=== PATIENT | female | born 1955 | race Caucasian/White ===

== ENCOUNTER 2024-08-05 19:15 | Inpatient (IN) | payer MEDICARE, SELFPAY ==
[2024-08-05] VITALS (88 sets, daily range): BP systolic 90–162; BP diastolic 41–126; PULSE 84–123; RESP 9–24; TEMP 36.1–36.8; O2SAT 97–100
--- NOTE | 2024-08-05 19:31 | W.ED.GENAD ---
Discharge Plan Disposition Patient Disposition: Admit to [facility] Condition: Serious Discharge Details Chief Complaint: [id number] Clinical Impression: Acute GI bleeding Primary Care Provider: Erika,Local ED Provider: Geronimo Short Home Meds and New Rx's Prescriptions: No Action No Known Home Meds HPI General Date/Time Provider Initiated Documentation: 08/05/24 19:21. Limitations to Documentation: no limitations and altered mental status. Information obtained by: patient, family and EMS. HPI Narrative: 69-year-old female without significant past medical history presents for evaluation of GI bleeding. Patient was found by EMS to the hypotensive and unresponsive on the floor of her hotel bathroom. They note that there was melena present in addition to a significant amount of bright red bleeding that appears to have come from the patient vomiting. They were unable to palpate a radial pulse. They report that the patient was initially minimally responsive. They placed 2 large-bore IVs and began some IV fluid resuscitation. Patient approximately at 300 cc of fluid and with some Trendelenburg positioning her mental status improved and they were able to get a blood pressure. The patient denies any liver disease or alcohol abuse. She does report a history of an ulcer 2 years ago that required intervention and had a similar amount of bleeding, maybe more. She was not started on a PPI tho. She is visiting from out of town and felt fine up until today. She reports all day she felt nauseated. This evening she started having dark brown tarry stool. She states then shortly after that she started having bright red vomiting she does not take any aspirin, other blood thinner, denies any use of NSAIDs. Reports occasional alcohol use. She reports that she has required blood transfusion in the past. Related Data Home Medications ?Medication ?Instructions ?Recorded ?Confirmed Unknown [No Known Home Meds] 08/05/24 08/05/24 Allergies Allergy/AdvReac Type Severity Reaction Status Date / Time Sulfa (Sulfonamide Allergy Other (See Verified 08/05/24 19:38 Antibiotics) Comment) General Stated Complaint: [id number] PAM: 2 Exam Narrative Exam Narrative: Review of Systems: All systems reviewed & are unremarkable except as noted in HPI and below Well-developed, ill-appearing Face and hair covered in blood NCAT Tachycardic no murmur Unlabored respiratory effort, clear bilaterally Nondistended abdomen soft nontender Course Vital Signs Vital signs: Vital Signs Temperature 36.1 C L 08/05/24 19:15 Pulse 94 H 08/05/24 19:15 Respiratory Rate 16 08/05/24 19:15 Blood Pressure 162/126 H 08/05/24 19:15 Pulse Oximetry 100 08/05/24 19:15 Temperature 36.1 C L 08/05/24 19:15 Temperature Source Oral 08/05/24 19:15 Pulse 94 H 08/05/24 19:15 Respiratory Rate 16 08/05/24 19:15 Respiratory Effort Normal 08/05/24 19:27 Respiratory Depth Normal 08/05/24 19:27 Respiratory Pattern Normal 08/05/24 19:27 Blood Pressure 162/126 H 08/05/24 19:15 Pulse Oximetry 100 08/05/24 19:15 Oxygen Delivery Method Room Air 08/05/24 19:15 Oxygen Flow Rate 0 08/05/24 19:15 Pain Level 0 08/05/24 19:15 Medical Decision Making Emergent evaluation of GI bleeding. Patient is ill-appearing though her hemodynamics have improved with positioning and IV fluid administration. There is a significant amount of blood loss at the scene and noted to have significant amount of blood on the patient. She smells of a GI bleed. She is not having any abdominal tenderness and reports that her nausea has resolved. She was emergently consented for blood product resuscitation given that she has demonstrated significant blood loss and there is an IV fluid shortage. Patient will be given IV Protonix. Since she does not have a history of liver disease or variceal bleeding, I will hold octreotide at this time. Lab work will be obtained to evaluate ongoing bleeding. Will give Zofran as well. If bleeding returns, patient may need to be intubated given the severity of her initial presentation. Will reach out to surgery to discuss whether this patient is a candidate for endoscopy here versus and need for transfer. 2000 Patient remains tachycardic but has had improvement in her blood pressure. She is continuing to receive 1 unit of PRBC. She reports that she denies any additional abdominal pain or nausea. Blood work reviewed, her hemoglobin is 9.3 and 29.6. No priors for comparison though this does seem low for an otherwise healthy person. Her chloride and BUN are elevated concerning for ongoing GI bleeding. Otherwise no liver dysfunction lipase is also normal. Discussed with general surgeon Dr. Rivas who evaluated the patient in the emergency department. She is requesting IV TXA which will be initiated here. She will admit the patient to her service and monitor in the ICU. Quality:SDOH Health Related Social Needs: No Data to Display Critical Care Time Critical Care Time Critical Care Time: Yes Total Critical Care Time: 37 Attestation: CRITICAL CARE Upon my evaluation, this patient had a high probability of imminent or life-threatening deterioration due to GIB which required my direct attention, intervention, and personal management. I have personally provided 37 minutes of critical care time exclusive of time spent on separately billable procedures. Time includes review of laboratory data, radiology results, discussion with consultants, and monitoring for potential decompensation. Interventions were performed as documented above PFSH All Active Problems (Updated 08/05/24 @ 20:29 by Geronimo Short MD) Acute GI bleeding (Acute) Social History Smoking risk assessment performed?: No
[2024-08-05 19:33] LABS: Abs Immature Grans 0.01 10^3/uL (0.0-0.06); Absolute Basophil Count 0.01 10^3/uL (0.0-0.2); Absolute Eosinophil Count 0.13 10^3/uL (0.0-0.7); Absolute Lymphocyte Count 2.13 10^3/uL (1.2-3.4); Absolute Monocyte Count 0.33 10^3/uL (0.1-0.8); Absolute Neutrophil Count 2.18 10^3/uL (1.2-6.7); Basophils % 0.2 %; Eosinophils % 2.7 %; HCT 29.6 % (36.0-46.0); HGB 9.3 g/dL (11.2-15.7); Immature Grans % 0.2 %; Lymphocytes % 44.5 %; MCH 29.8 pg (27.0-33.0); MCHC 31.4 % (32.0-36.0); MCV 95 fL (80-95); MPV 12.3 fL (8.0-11.0); Monocytes % 6.9 %; Neutrophils % 45.5 %; Platelet Count 175 10^3/uL (130-400); RBC 3.12 10^6/uL (3.93-5.22); RDW-SD 41.1 fL; WBC 4.79 10^3/uL (4.4-10.8)
[2024-08-05] MEDS: Pantoprazole 40 MG VIAL 80 MG IVP (19:37)
[2024-08-05] MEDS: Ondansetron 4 MG/2 ML VIAL IVP (19:37)
[2024-08-05 19:59] LABS: ALT 19 U/L (14-59); AST 17 U/L (15-37); Albumin 2.7 g/dL (3.4-5.0); Alkaline Phosphatase 96 U/L (46-116); Anion Gap 10.9 mmol/L (3-11); BUN 66 mg/dL (7-18); Bilirubin, Total 0.27 mg/dL (0.2-1.0); CO2 22.1 mmol/L (21.0-32.0); CREATININE 0.8 mg/dL (0.55-1.02); Calcium 8.5 mg/dL (8.5-10.1); Chloride 111 mmol/L (98-107); Estimated GFR 79.22 (mL/min/1.73m2); Glucose 130 mg/dL (74-106); INR 1.1 (0.9-1.1); Lipase 29 U/L (16-77); Potassium 3.8 mmol/L (3.5-5.1); Sodium 144 mmol/L (136-145); Total Protein 5.9 g/dL (6.4-8.2)
--- NOTE | 2024-08-05 20:15 | DI.CT_ITS ---
Exam(s) CT ABDOMEN PELVIS CTA EXAM: CT ABDOMEN PELVIS CTA CLINICAL HISTORY: GI BLEED TECHNIQUE: Imaging Protocol: Axial computed tomography images with coronal and sagittal reformatted images were created and reviewed CONTRAST MATERIAL: Intravenous: Omnipaque 350 Contrast volume:100 ml Oral: None COMPARISON: No exams were available for comparison FINDINGS: ABDOMEN: ARTERIAL: There is no evidence of abdominal aortic aneurysm nor dissection. The celiac and superior m esenteric arteries are patent.No significant stenosis in these vessels. The inferior mesenteric daylin ry is also demonstrated to be patent. There are no large meandering collateral vessels in the mesent kareem. There is also no significant stenosis at the origin of the renal arteries. The aortic bifurcation is patent with minimal atherosclerotic involvement. There is no significant a therosclerotic narrowing of the aortoiliac segments. There is, however, fusiform dilatation of the d istal most aspect of the left common iliac artery which exhibits a diameter of 1.4 cm. No stenosis n or dissection at this level. GASTROINTESTINAL: There is no intraluminal extravasation of injected IV contrast to suggest acute GI bleed at this time. Slightly delayed images also reveal no contrast pooling to suggest location of a cute GI bleed. Incidentally noted are dilated periuterine veins consistent with element of pelvic co ngestion syndrome but no hemorrhage at this level. LIVER: There are no focal hepatic lesions nor dilatation of intrahepatic ducts. GALLBLADDER/BILIARY: No obvious gallbladder pathology. CBD is not dilated. PANCREAS: No evidence of pancreatic mass nor dilatation of the pancreatic duct. SPLEEN: Spleen is not enlarged. There are no intrasplenic lesions. Splenic and portal veins are christianson nt. ADRENALS: There is a mass in the left adrenal gland measuring 3.0x2.0 cm. Right adrenal gland unrema rkable. KIDNEYS: No cysts evident. No calculi nor hydronephrosis. No solid renal masses. LYMPH NODES: There is no retroperitoneal nor para-aortic adenopathy. No obvious mesenteric masses. ABDOMINAL WALL: No evidence of significant anterior abdominal wall hernia. GI: There is no evidence of bowel obstruction, free air, nor abscess. PELVIS: LYMPH NODES: There is no intrapelvic nor inguinal adenopathy. GI: No evidence of appendicitis.No evidence of sigmoid diverticulitis. URINARY BLADDER: No calculi nor masses evident REPRODUCTIVE: Uterus unremarkable. No abnormal adnexal masses. OSSEOUS: No significant osseous lesions. No fractures. Chronic disc space narrowing at L1-2 level. IMPRESSION: 1. No evidence of acute GI hemorrhage at time of image acquisition. 2. No evidence of bowel obstruction, free air, nor abscess. 3. There is a 3 x 2 cm left adrenal mass. If not previously characterized this can be further studie d with adrenal protocol CT or MRI. 4. Other findings as above. RADIATION DOSE DELIVERED: 658.07mGy.cm Total DLP DATA REPOSITORY: All CT scans at this facility are submitted to the National Radiology Data Registry (NRDR) Dose Index Registry (DIR) with the [employer] (ACR). RADIATION OPTIMIZATION: All CT scans at this facility use at least one of these dose optimization te chniques: automated exposure control; mA and/or kV adjustment per patient size (includes targeted exa ms where dose is matched to clinical indication); or iterative reconstruction.
[2024-08-05] MEDS: Normal Saline - Diluent 50 ML VIAL IJ (20:41)
[2024-08-05] MEDS: Omnipaque 350 MG/ML 500 ML BTL-Imaging package 100 ML IJ (20:42)
--- NOTE | 2024-08-05 20:43 | HPE_ITS ---
Date of service: 08/05/24 Time of Service: 20:43 Assessment and Plan Assessment and plan (1) Anemia due to blood loss, acute: Status: Acute Assessment and plan: admit ICU x3 IV's trend hgb receiving x1 PRBC in ED. follow h/h. PPi drip TXA repeat egd in am CT angio DVT- SCD. Not a candidate for pharmacological prophylaxis at this time I-S Supportive care Patient has a history of the GI bleed secondary to gastric ulcers that has a similar presentation (2) Acute GI bleeding: Status: Acute (3) History of parotid gland removal: (4) History of gastric ulcer: Status: Acute (5) PONV (postoperative nausea and vomiting): Status: Acute (6) Umbilical hernia: Status: Acute (7) Adrenal nodule: Status: Acute Assessment and plan: 3.5cm This document was created with voice activated software and may contain errors. .45 mins spent in direct pt care and 45 non direct/charting I did reach review the case with Dr. Razo from the ER and with nursing in the ICU. Hopefully Dr. Umana will have time to scope her tomorrow and she will be resuscitated. History of Present Illness Narrative: Patient is a 77-year-old female from [place], vacationing on the [facility]. She was in her normal state of good health today when she suddenly developed nausea and dizziness/weakness and proceeded to vomit bright red blood. 911 was called and she came to the hospital. She denies having any abdominal pain while she is in the ER. She denied had a being any abdominal pain yesterday. she still complains of some nausea. She denies any chest pain or shortness of breath currently. She feels tired and weak. She is here on a hiking vacation. She denies any fall or injury today. They hiked approximately 12 miles. She did have 1 glass of wine with dinner, last night. She has less than 1 alcoholic drink a month. She does not drink any coffee/caffeine/soda. She does not take aspirin/NSAIDs. She is not on any prednisone. She is not currently on any medications. She does not take any supplements. To her knowledge, she has no bleeding or coagulation disorders. She had a history of a previous episode approximately 2 years ago. It has a similar presentation to today. She underwent an EGD and was diagnosed with a bleeding gastric ulcer. She was treated for this medically. She was not advised that she needed to stay on a H2 jennifer or PPI lifelong. She believes she was H. pylori negative. She is normally very physically active and healthy they hike and camp routinely. She denies any trauma or injury. She denies any activities out of the realm of her normal. Her is not ill. The gait pretty much ate the same food and water. Past medical history is unremarkable. She denies diabetes. She denies heart attack or stroke. She denies any bleeding or coagulation disorders. She denies any autoimmune or thyroid disorders. She denies any asthma or sleep apnea. 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 She did have some postop nausea and vomiting at that time. She had no PONV with her last EGD. 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 She did receive a unit of O- in the ER and has not shown any signs of reaction. Review of Systems All systems reviewed & are unremarkable except as noted in HPI and below PFSH All Active Problems (Updated 08/05/24 @ 23:34 by Madelyn Rivas DO) Adrenal nodule (Acute) Umbilical hernia (Acute) PONV (postoperative nausea and vomiting) (Acute) History of gastric ulcer (Acute) Anemia due to blood loss, acute (Acute) Acute GI bleeding (Acute) Surgical History (Updated 08/05/24 @ 21:01 by Madelyn Rivas DO) History of parotid gland removal Social History Smoking risk assessment performed?: No Meds Allergies and Home Medications Allergies Allergy/AdvReac Type Severity Reaction Status Date / Time Sulfa (Sulfonamide Allergy Other (See Verified 08/05/24 19:38 Antibiotics) Comment) Home Medications ?Medication ?Instructions ?Recorded ?Confirmed ?Type Unknown [No Known Home Meds] 08/05/24 08/05/24 History Exam Narrative Exam Narrative: PHYSICAL EXAM GENERAL APPEARANCE: Alert, healthy appearance, oriented, x 3,? in no acute distress HYDRATION: Well hydrated HEAD, EYES, EARS, NECK, THROAT: Head is normocephalic, pupils equal, round, reactive to light and accommodation, ocular movement intact, sclera clear and no jaundice. ?Dentition intact. LUNGS: normal respiration/normal chest excursion. ?Clear to auscultation bilaterally. ?No wheeze. ?HEART: Regular rate and rhythm. no murmurs EXTREMITY: No edema or cyanosis.? no leg pain, redness, swelling.? ABDOMEN: soft and non-tender to palpation.? Normal bowel sounds.? Results Labs 08/05/24 22:59 08/05/24 19:25 Labs: Laboratory Results - last 24 hr 08/05/24 19:25 WBC 4.79 RBC 3.12 L Hgb 9.3 L Hct 29.6 L MCV 95 MCH 29.8 MCHC 31.4 L RDW 12.0 Plt Count 175 MPV 12.3 H Immature Gran % 0.2 Neutrophils % 45.5 Lymphocytes % 44.5 Monocytes % 6.9 Eosinophils % 2.7 Basophils % 0.2 Nucleated RBC % 0.0 Absolute Neutrophils 2.18 Absolute Lymphocytes 2.13 Absolute Monocytes 0.33 Absolute Eosinophils 0.13 Absolute Basophils 0.01 PT 11.0 INR 1.1 APTT 20.0 L Sodium 144 Potassium 3.8 Chloride 111 H Carbon Dioxide 22.1 Anion Gap 10.9 BUN 66 H Creatinine 0.8 Est GFR (CKD-EPI 2020) 79.22 Glucose 130 H Calcium 8.5 Magnesium 2.0 Total Bilirubin 0.27 AST 17 ALT 19 Alkaline Phosphatase 96 Total Protein 5.9 L Albumin 2.7 L Lipase 29 Last Vital Signs Temp 36.1 C L 08/05/24 19:15 Pulse 91 H 08/05/24 19:35 Resp 18 08/05/24 19:40 BP 131/68 08/05/24 19:35 Pulse Ox 100 08/05/24 19:40 Time Spent Time spent with Patient: >75 minutes Time was spent: preparing to see the patient(eg.review tests), obtaining and/or reviewing separately otained hiistory, ordering medications,tests, procedures, referring, communicating with other health career and guidance counselor, indepentently interpreting results, counseling the patient, care coordination and other
--- NOTE | 2024-08-05 22:00 | DI.VRAD_ITS ---
PROCEDURE INFORMATION: Exam: CTA Abdomen and Pelvis With Contrast Exam date and time: 08/05/2024 8:38 PM Age: 69 years old Clinical indication: Other: Gi bleed TECHNIQUE: Imaging protocol: Computed tomographic angiography of the abdomen and pelvis with contrast. Exam focused on the arteries. 3D rendering (Not supervised by radiologist): MIP and/or 3D reconstructed images were created by the technologist. Contrast material: OMNIPAQUE 350; Contrast volume: 70 ml; Contrast route: INTRAVENOUS (IV); COMPARISON: No relevant prior studies available. FINDINGS: Lungs: Bibasilar atelectasis Aorta: No aortic aneurysm. No aortic dissection. Celiac trunk and mesenteric arteries: No occlusion or significant stenosis. Renal arteries: No occlusion or significant stenosis. Right iliac arteries: No occlusion or significant stenosis. Left iliac arteries: No occlusion or significant stenosis. Other arteries: Patent vascular structures without evidence of acute hemorrhage. Liver: No mass. Gallbladder and biliary ducts: Distended gallbladder without wall thickening or pericholecystic fluid. Pancreas: Unremarkable. No mass. No ductal dilation. Spleen: Multiple calcified granulomas noted in the spleen. No splenomegaly. Adrenal glands: Indeterminate 3.5 cm left adrenal nodule. Kidneys and ureters: Unremarkable. No solid mass. No hydronephrosis. Stomach and bowel: Moderate stool throughout the colon and rectum. Appendix: No evidence of appendicitis. Intraperitoneal space: Unremarkable. No free air. No significant fluid collection. Lymph nodes: Unremarkable. No enlarged lymph nodes. Urinary bladder: Unremarkable. No mass. Reproductive: Unremarkable as visualized. Bones/joints: No acute fracture. Soft tissues: There is a small fat-containing umbilical hernia. IMPRESSION: 1. Patent vascular structures without evidence of acute hemorrhage. 2. Indeterminate 3.5 cm left adrenal nodule. If not previously characterized, this can be further evaluated with nonemergent adrenal protocol CT or MRI. Dictated and Authenticated by: Michelle Gomez MD. Ordering:[facility] Han Navarro MD
--- NOTE | 2024-08-05 22:04 | NUR.NOTE ---
Addendum entered by Neeraj Justin RN 08/11/24 00:53: late entry, TXA infused and completed prior to transporting to the floor Original Note: Nursing Note: BIBA from [facility], [place], see triage note per EMS the pt had a large amount of blood loss at the hotel and +syncope with hypotension per MD clint BOYER called to have emergency 1 unit of O+ blood standing by pt arrived stable and staff in the room with , the blood transfusion begun labs drawn and sent to the lab type/screen/cross resulted lab called stating the her blood showed positive for warm auto antibody and that to watch for transfusion rxn which may occur 15min to 48hrs per blood bank the pts labs will need to be sent to the [facility] for elutilin, the pt will have blood testing q hourly the pt lives in [place] and is a pt at [facility] in [place]. this info passed on the the pathologist and blood bank pt at CT, left arm/iv infiltration, warm moist cloths applied to area, iv removed,area decreased in size this nurse has been at the pts bedside assessing VS and possible rx to blood no rx noted and stable VS
[2024-08-05 22:10] LABS: Abs Immature Grans 0.03 10^3/uL (0.0-0.06); Absolute Basophil Count 0.01 10^3/uL (0.0-0.2); Absolute Eosinophil Count 0.03 10^3/uL (0.0-0.7); Absolute Lymphocyte Count 0.98 10^3/uL (1.2-3.4); Absolute Monocyte Count 0.38 10^3/uL (0.1-0.8); Absolute Neutrophil Count 6.31 10^3/uL (1.2-6.7); Basophils % 0.1 %; Eosinophils % 0.4 %; HCT 31.6 % (36.0-46.0); HGB 10.4 g/dL (11.2-15.7); Immature Grans % 0.4 %; Lymphocytes % 12.7 %; MCH 29.7 pg (27.0-33.0); MCHC 32.9 % (32.0-36.0); MCV 90 fL (80-95); MPV 12.1 fL (8.0-11.0); Monocytes % 4.9 %; Neutrophils % 81.5 %; Platelet Count 169 10^3/uL (130-400); RDW 12.4 % (11.7-14.6); RDW-SD 40.6 fL; WBC 7.74 10^3/uL (4.4-10.8)
[2024-08-05 23:03] LABS: HCT 31.1 % (36.0-46.0); HGB 10.2 g/dL (11.2-15.7); MCH 29.7 pg (27.0-33.0); MCHC 32.8 % (32.0-36.0); MCV 91 fL (80-95); Platelet Count 177 10^3/uL (130-400); RBC 3.43 10^6/uL (3.93-5.22); RDW 12.3 % (11.7-14.6); RDW-SD 40.8 fL
[2024-08-06] VITALS (28 sets, daily range): BP systolic 126–151; BP diastolic 58–89; PULSE 80–124; RESP 13–24; TEMP 36.7–36.8; O2SAT 94–100; BMI 22.5
[2024-08-06] MEDS: Lactated Ringers 1,000 ML 75 ML IV ×2 (00:11→13:22)
[2024-08-06] MEDS: Ondansetron 4 MG/2 ML VIAL IVP ×2 (00:32→05:22)
[2024-08-06] MEDS: Normal Saline Flush 10 ML SYR IVP ×4 (00:32→19:42)
[2024-08-06] MEDS: Sucralfate 1 GM TAB PO ×4 (00:33→18:25)
[2024-08-06] MEDS: PANTOPRAZOLE 80 MG in Normal Saline 100 ML 10 MG IV (00:34)
[2024-08-06] MEDS: TRANEXAMIC ACID/SOD. CHL. 1,000 MG/100 ML BAG 12.5 MG IV ×2 (01:06→07:24)
--- NOTE | 2024-08-06 01:34 | W.PC.ACHO ---
Registration Status: Primary Language: Preferred Language: ED Information & Data Chief Complaint [id number] 08/05/24 19:36 Triage Note Pt arrives via EMS s/p being 08/05/24 19:15 found on the bathroom floor (possible syncopal episode) w bright red vomit noted. Pt w hx of ulcer (location unknown). BGL = 130 upon arrival. Pt also reports dark tarry stool w abd pain this morning. EMS states pt was pale and diaphoretic upon their arrival but arrives WDP. Pt is from out of town therefore limited hx on patient is available. Denies pain currently. Of note (per ): Pt states she was in the shower when she suddenly felt lightheaded. Pt lowered herself to the floor before she passed out. Did not hit head. LOC=less than one minutes. (Last Updated 08/05/24 @ 21:01 by Madelyn Rivas DO) History of parotid gland removal Most Recent Vital Signs Temperature 36.5 C 08/05/24 23:54 Temperature Source Temporal Artery Scan 08/05/24 23:54 Pulse 105 H 08/05/24 23:54 Pulse 98 H 08/05/24 19:40 Respiratory Rate 16 08/05/24 23:54 Respiratory Effort Normal, Non-Labored 08/05/24 23:54 Respiratory Depth Normal 08/05/24 19:27 Respiratory Pattern Normal 08/05/24 23:54 Blood Pressure 118/92 H 08/05/24 23:04 Blood Pressure Mean 90 08/05/24 19:35 Pulse Oximetry 98 08/05/24 23:54 Oxygen Delivery Method Room Air 08/05/24 23:54 Oxygen Flow Rate 0 08/05/24 23:54 Pain Level 0 08/05/24 19:15 Allergies Sulfa (Sulfonamide Antibiotics) Allergy (Verified 08/05/24 19:38) Other (See Comment) Active Medications Generic Name Dose Route Start Last Admin Trade Name Freq PRN Reason Stop Dose Admin Ringer's Solution 1,000 mls @ 75 mls/hr 08/05/24 20:45 08/06/24 00:11 IV 75 mls/hr INFUSION EULOGIO Administration Tranexamic Acid/Sodium Chloride 1,000 mg in 100 mls @ 12.5 mls/hr 08/05/24 21:15 08/06/24 01:06 IV 12.5 mls/hr INFUSION EULOGIO Administration Pantoprazole Sodium 80 mg/ 100 mls @ 10 mls/hr 08/05/24 21:15 08/06/24 00:34 Sodium Chloride IV 10 mls/hr INFUSION EULOGIO Administration Iohexol 100 ml 08/05/24 20:45 08/05/24 20:42 Omnipaque 350 Mg/Ml 500 Ml Btl-Imaging Package IJ 09/04/24 23:59 70 ml DIRECTED EULOGIO Administration Ondansetron HCl 4 mg 08/05/24 23:38 08/06/24 00:32 Ondansetron 4 Mg/2 Ml Vial IVP 4 mg Q4H PRN PRN Administration Sodium Chloride 0 ml 08/05/24 19:22 08/06/24 00:32 Normal Saline Flush 10 Ml Syr IVP 30 ml PRN PRN Administration Sodium Chloride 0 ml 08/05/24 20:00 08/06/24 01:07 Normal Saline Flush 10 Ml Syr IVP Not Given BID EULOGIO Sodium Chloride 50 ml 08/05/24 20:45 08/05/24 20:41 Normal Saline - Diluent 50 Ml Vial IJ 50 ml .FOR DI USE EULOGIO Administration Sucralfate 1 gm 08/06/24 00:00 08/06/24 00:33 Sucralfate 1 Gm Tab PO 1 gm Q6H EULOGIO Administration IV IV Catheter Type [Left Peripheral IV Antecubital] IV Catheter Type [Right Saline Lock Antecubital] IV Catheter Gauge [Left 18 Antecubital] IV Catheter Gauge [Right 16 Antecubital] Diet Orders Category Date Time Status Nothing Per Oral [DIET] Nutrition 08/05/24 Dinner Active Diagnostics 08/06/24 08/06/24 08/05/24 Range/Units 05:35 05:00 22:59 WBC 7.70 (4.4-10.8) 10^3/uL RBC 3.43 L (3.93-5.22) 10^6/uL Hgb 10.2 L (11.2-15.7) g/dL Hct 31.1 L (36.0-46.0) % MCV 91 (80-95) fL MCH 29.7 (27.0-33.0) pg MCHC 32.8 (32.0-36.0) % RDW 12.3 (11.7-14.6) % Plt Count 177 (130-400) 10^3/uL MPV 12.0 H (8.0-11.0) fL Immature Gran % % Neutrophils % % Lymphocytes % % Monocytes % % Eosinophils % % Basophils % % Nucleated RBC % (0.0-0.3) % Absolute Neutrophils (1.2-6.7) 10^3/uL Absolute Lymphocytes (1.2-3.4) 10^3/uL Absolute Monocytes (0.1-0.8) 10^3/uL Absolute Eosinophils (0.0-0.7) 10^3/uL Absolute Basophils (0.0-0.2) 10^3/uL PT (9.1-11.1) sec INR (0.9-1.1) APTT (23.6-32.8) sec Sodium Pending (136-145) mmol/L Potassium Pending (3.5-5.1) mmol/L Chloride Pending (98-107) mmol/L Carbon Dioxide Pending (21.0-32.0) mmol/L Anion Gap Pending (3-11) mmol/L BUN Pending (7-18) mg/dL Creatinine Pending (0.55-1.02) mg/dL Est GFR (CKD-EPI 2020) Pending (mL/min/1.73m2) Glucose Pending (74-106) mg/dL Hemoglobin A1c Pending Calcium Pending (8.5-10.1) mg/dL Magnesium Pending (1.8-2.4) mg/dL Ferritin Pending Total Bilirubin (0.2-1.0) mg/dL AST (15-37) U/L ALT (14-59) U/L Alkaline Phosphatase (46-116) U/L Total Protein (6.4-8.2) g/dL Albumin (3.4-5.0) g/dL Lipase (16-77) U/L Vitamin B12 Pending Folate Pending ABO/Rh Blood Type Recheck Antibody Screen Antibody Identification Crossmatch 08/05/24 08/05/24 08/05/24 Range/Units 22:00 20:08 19:25 WBC 7.74 4.79 (4.4-10.8) 10^3/uL RBC 3.50 L 3.12 L (3.93-5.22) 10^6/uL Hgb 10.4 L 9.3 L (11.2-15.7) g/dL Hct 31.6 L 29.6 L (36.0-46.0) % MCV 90 D 95 (80-95) fL MCH 29.7 29.8 (27.0-33.0) pg MCHC 32.9 31.4 L (32.0-36.0) % RDW 12.4 12.0 (11.7-14.6) % Plt Count 169 175 (130-400) 10^3/uL MPV 12.1 H 12.3 H (8.0-11.0) fL Immature Gran % 0.4 0.2 % Neutrophils % 81.5 45.5 % Lymphocytes % 12.7 44.5 % Monocytes % 4.9 6.9 % Eosinophils % 0.4 2.7 % Basophils % 0.1 0.2 % Nucleated RBC % 0.0 0.0 (0.0-0.3) % Absolute Neutrophils 6.31 2.18 (1.2-6.7) 10^3/uL Absolute Lymphocytes 0.98 L 2.13 (1.2-3.4) 10^3/uL Absolute Monocytes 0.38 0.33 (0.1-0.8) 10^3/uL Absolute Eosinophils 0.03 0.13 (0.0-0.7) 10^3/uL Absolute Basophils 0.01 0.01 (0.0-0.2) 10^3/uL PT 11.0 (9.1-11.1) sec INR 1.1 (0.9-1.1) APTT 20.0 L (23.6-32.8) sec Sodium 144 (136-145) mmol/L Potassium 3.8 (3.5-5.1) mmol/L Chloride 111 H (98-107) mmol/L Carbon Dioxide 22.1 (21.0-32.0) mmol/L Anion Gap 10.9 (3-11) mmol/L BUN 66 H (7-18) mg/dL Creatinine 0.8 (0.55-1.02) mg/dL Est GFR (CKD-EPI 2020) 79.22 (mL/min/1.73m2) Glucose 130 H (74-106) mg/dL Hemoglobin A1c Calcium 8.5 (8.5-10.1) mg/dL Magnesium 2.0 (1.8-2.4) mg/dL Ferritin Total Bilirubin 0.27 (0.2-1.0) mg/dL AST 17 (15-37) U/L ALT 19 (14-59) U/L Alkaline Phosphatase 96 (46-116) U/L Total Protein 5.9 L (6.4-8.2) g/dL Albumin 2.7 L (3.4-5.0) g/dL Lipase 29 (16-77) U/L Vitamin B12 Folate ABO/Rh O Positive Blood Type Recheck O Positive Antibody Screen POSITIVE Antibody Identification Pending Crossmatch See Detail Jocrw-ut-[id number] Documentation Fingerstick Glucose Start: 08/05/24 19:22 Freq: Status: Active Protocol: Activity Type Activity Date Activity User E-sign Co-sign Detail Recorded Client Recorded Date Recorded By Document 08/05/24 19:21 BKG DAEMON(10) [id number] 08/05/24 19:22 BKG DAEMON(10) Intake and Output - 24 Hour Total 08/05/24 19:01 thru 08/05/24 23:54 Weight 63.2 kg Falls Risk Assessment History of Falls No History 08/05/24 23:54 Contributing Factors Unstable 08/05/24 23:54 Ambulatory Aids Independent 08/05/24 23:54 Tubes/Lines With any additional score 08/05/24 23:54 Gait Evaluation No gait disturbance 08/05/24 23:54 Cognition No cognitive impairment 08/05/24 23:54 Fall Total Score 23 08/05/24 23:54 Level of Risk Standard/Low Risk 08/05/24 23:54 Problems (Last Reviewed 08/05/24 @ 20:59 by Madelyn Rivas DO) Adrenal nodule (Acute) Umbilical hernia (Acute) PONV (postoperative nausea and vomiting) (Acute) History of gastric ulcer (Acute) Anemia due to blood loss, acute (Acute) Acute GI bleeding (Acute) Notes 08/05/24 22:04 Nursing Notes by Neeraj Justin Nursing Note: BIBA from [facility], pt visiting from [place], see triage note per EMS the pt had a large amount of blood loss at the hotel and +syncope with hypotension per MD clint BOYER called to have emergency 1 unit of O+ blood standing by pt arrived stable and staff in the room with , the blood transfusion begun labs drawn and sent to the lab type/screen/cross resulted lab called stating the her blood showed positive for warm auto antibody and that to watch for transfusion rxn which may occur 15min to 48hrs per blood bank the pts labs will need to be sent to the [facility] for elutilin, the pt will have blood testing q hourly the pt lives in [place] and is a pt at [facility] in [place]. this info passed on the the pathologist and blood bank pt at [place], left arm/iv infiltration, warm moist cloths applied to area, iv removed,area decreased in size this nurse has been at the pts bedside assessing VS and possible rx to blood no rx noted and stable VS Initialized on 08/05/24 22:04 - END OF NOTE v v v v v v v v v Sending and/or Receiving Nurses: Please use comment section below to note any information pertinent to the patient hand-off not included above. Information / Comments: Report received from: Gisel Justin RN all questions answered: yes
[2024-08-06 05:46] LABS: Hemoglobin A1C 5.2 % (<5.7)
[2024-08-06 06:07] LABS: Ferritin 55 ng/mL (8-252); Magnesium 2.1 mg/dL (1.8-2.4)
[2024-08-06 06:19] LABS: Anion Gap 10.4 mmol/L (3-11); BUN 44 mg/dL (7-18); CO2 23.6 mmol/L (21.0-32.0); CREATININE 0.7 mg/dL (0.55-1.02); Calcium 8.6 mg/dL (8.5-10.1); Chloride 113 mmol/L (98-107); Estimated GFR 92.98 (mL/min/1.73m2); Folate 10.7 ng/mL (8.6-20.0); Glucose 89 mg/dL (74-106); Potassium 4.3 mmol/L (3.5-5.1); Sodium 147 mmol/L (136-145); Vitamin B12 1264 pg/mL (193-986)
[2024-08-06 07:56] LABS: Abs Immature Grans 0.02 10^3/uL (0.0-0.06); Absolute Basophil Count 0.01 10^3/uL (0.0-0.2); Absolute Eosinophil Count 0.04 10^3/uL (0.0-0.7); Absolute Lymphocyte Count 1.56 10^3/uL (1.2-3.4); Absolute Monocyte Count 0.56 10^3/uL (0.1-0.8); Absolute Neutrophil Count 4.31 10^3/uL (1.2-6.7); Basophils % 0.2 %; Eosinophils % 0.6 %; HCT 29.2 % (36.0-46.0); Immature Grans % 0.3 %; MCH 29.8 pg (27.0-33.0); MCHC 34.2 % (32.0-36.0); MCV 87 fL (80-95); MPV 12.7 fL (8.0-11.0); Monocytes % 8.6 %; Neutrophils % 66.3 %; Platelet Count 176 10^3/uL (130-400); RBC 3.36 10^6/uL (3.93-5.22); RDW 12.6 % (11.7-14.6); RDW-SD 40.2 fL
--- NOTE | 2024-08-06 09:09 | PDOC.CMIN ---
Date of service: 08/06/24 Time of Service: 09:09 Care Management Initial Assmt Initial Assessment Reason for Hospitalization: acute GIB Functional Status/Living Situation Patient Presentation: Belle and her , Carmelo, reside in [place], [place]. They are in [place] on a hiking trip, they had already spent some time in [place], and were planning to start the drive home on 08/17, after going to [place]. Belle is not exactly sure of her plan as of yet once she is discharged. She may spend a couple of days in [place], if she feels up to it and the provider thinks it is safe. Prior to yesterday, Belle was feeling her usual self, but she was nauseous all day yesterday, and then passed bloody stool and had bloody emesis. She was found unresponsive by EMS with no palpable radial pulse. She was immediately given IVF and started to come around. She stated that today she is feeling so much better. She admits the episode was very scary, for both her and her . Belle stated the she has not seen her PCP in years. She was not able to tell me the name of the practice. She does see a software packager, but didn't have any of her information with her, either. CM encouraged Belle to try to find that info so that we can fax to her provider. She does know that she can be given a copy of the record if we can not fax. Town of Residence: lives in [place], [place] Resides with: Spouse (Carmelo) Significant Other/Family: Local (children and grandchildren live nearby in [place]) Natural Supports: Carmelo and family Employment Status: Retired (Worked in care management and utilization review) Instrumental Activities of Daily Living (ADLs): Independent Activities/Hobbies/SocialSupport: Belle is generally very active. She loves to hike and she exercises daily. Medications Medication Management: No Issues/Barriers identified Advance Directives Advance Directives: Do you have an Advance Directive: N 08/05/24 20:22 AD On File at [facility]: N 08/05/24 20:22 Date Asked 08/05/24 08/05/24 20:22 AD Date Reviewed COLST On File at [facility] No 08/05/24 20:22 COLST Date Scanned Code Status Resuscitation Status Full Code Portal Pt does not currently have a portal and education provided: No Portal Education: Other (not in area) Insurance Coverage/Financial Issues Insurance: [employer] replacement Financial Issues: denies Care Team Visit Care Team Role Provider Type Local No Primary Care Provider NON-[facility] STAFF PHYSICIAN Geronimo Short MD Emergency Provider [facility] STAFF PHYSICIAN Madelyn Rivas DO Admit Provider OSTEOPATHIC DOCTOR Attending Provider Discharge Potential Discharge Needs: PCP F/U Appt and Surgical F/U Appt Anticipated Barriers to Discharge: None Identified Patient/Family Education Needs: Review discharge instructions, discuss Ask Me Three Transportation: Private vehicle Plan: Anticipate that Belle will be discharged home once medically cleared. She will need to f/u with her PCP, software packager, and a surgeon in her local area. She will travel in a private vehicle with her . CM will continue to follow and update the plan as needed. PFSH All Active Problems (Updated 08/05/24 @ 23:34 by Madelyn Rivas DO) Adrenal nodule (Acute) Umbilical hernia (Acute) PONV (postoperative nausea and vomiting) (Acute) History of gastric ulcer (Acute) Anemia due to blood loss, acute (Acute) Acute GI bleeding (Acute) Surgical History (Updated 08/05/24 @ 21:01 by Madelyn Rivas DO) History of parotid gland removal Social History Smoking risk assessment performed?: No Housing: house Readmission Within the Past 30 Days Yes or No: No SDOH(Care Management) Screening Will the Patient Participate in the Screening?: Yes Do you worry about having a steady place to live?: no Problems where you live: no known problems In the past 12 months, have you had to go without electric, gas, oil or water in your home?: no Have you or anyone in your house had to go without enough food to eat?: no Has lack of transportation kept you from medical appointments or from doing things needed for daily living?: no Has anyone in your support network made you feel unsafe for any reason?: no
--- NOTE | 2024-08-06 12:21 | W.PM.PROGNOT ---
Date of Service Date of service: 08/06/24 Time of Service: 12:22 Assessment and Plan Assessment and plan (1) Acute GI bleeding: Status: Acute Assessment and plan: Belle's hemoglobin seems to have stabilized around 10. Hemodynamics are all very reassuring. We talked about the nature of the EGD, and our plan for today. I think she has a very good understanding of this. Will make arrangements to get down to the operating room as soon as we can. Subjective Subjective Interval history since last seen: Belle is feeling much better today compared to the events yesterday. She is awake and alert and comfortable. She denies abdominal pain this morning. Exam GI Other: Abdomen is soft and nondistended. She is nontender. Objective Last Vital Signs Temp 98.1 F 08/06/24 09:00 Pulse 98 H 08/06/24 10:01 Resp 22 08/06/24 10:01 BP 127/79 08/06/24 10:01 Pulse Ox 99 08/06/24 10:01 Laboratory Results - last 24 hr 08/05/24 08/05/24 08/05/24 19:25 20:08 22:00 WBC 4.79 7.74 RBC 3.12 L 3.50 L Hgb 9.3 L 10.4 L Hct 29.6 L 31.6 L MCV 95 90 D MCH 29.8 29.7 MCHC 31.4 L 32.9 RDW 12.0 12.4 Plt Count 175 169 MPV 12.3 H 12.1 H Immature Gran % 0.2 0.4 Neutrophils % 45.5 81.5 Lymphocytes % 44.5 12.7 Monocytes % 6.9 4.9 Eosinophils % 2.7 0.4 Basophils % 0.2 0.1 Nucleated RBC % 0.0 0.0 Absolute Neutrophils 2.18 6.31 Absolute Lymphocytes 2.13 0.98 L Absolute Monocytes 0.33 0.38 Absolute Eosinophils 0.13 0.03 Absolute Basophils 0.01 0.01 PT 11.0 INR 1.1 APTT 20.0 L Sodium 144 Potassium 3.8 Chloride 111 H Carbon Dioxide 22.1 Anion Gap 10.9 BUN 66 H Creatinine 0.8 Est GFR (CKD-EPI 2020) 79.22 Glucose 130 H Hemoglobin A1c Calcium 8.5 Magnesium 2.0 Ferritin Total Bilirubin 0.27 AST 17 ALT 19 Alkaline Phosphatase 96 Total Protein 5.9 L Albumin 2.7 L Lipase 29 Vitamin B12 Folate ABO/Rh O Positive Blood Type Recheck O Positive Antibody Screen POSITIVE Crossmatch See Detail 08/05/24 08/06/24 08/06/24 22:59 05:10 05:15 WBC 7.70 6.50 RBC 3.43 L 3.36 L Hgb 10.2 L 10.0 L Hct 31.1 L 29.2 L MCV 91 87 D MCH 29.7 29.8 MCHC 32.8 34.2 RDW 12.3 12.6 Plt Count 177 176 MPV 12.0 H 12.7 H Immature Gran % 0.3 Neutrophils % 66.3 Lymphocytes % 24.0 Monocytes % 8.6 Eosinophils % 0.6 Basophils % 0.2 Nucleated RBC % 0.0 Absolute Neutrophils 4.31 Absolute Lymphocytes 1.56 Absolute Monocytes 0.56 Absolute Eosinophils 0.04 Absolute Basophils 0.01 PT INR APTT Sodium 147 H Potassium 4.3 Chloride 113 H Carbon Dioxide 23.6 Anion Gap 10.4 BUN 44 H Creatinine 0.7 Est GFR (CKD-EPI 2020) 92.98 Glucose 89 Hemoglobin A1c 5.2 Calcium 8.6 Magnesium 2.1 Ferritin 55 Total Bilirubin AST ALT Alkaline Phosphatase Total Protein Albumin Lipase Vitamin B12 1264 H Folate 10.7 ABO/Rh Blood Type Recheck Antibody Screen Crossmatch PAWSS Have you Been Recently Intoxicated or Drunk Within the Last 30 days?: No Have you Ever Experienced Previous Episodes of Alcohol Withdrawal?: No Have you ever Experienced Withdrawal Seizures?: No Have you ever Experienced Delirium Tremens(DT)s?: No Have you ever undergone Alcohol Rehabilitation Treatment (i.e, inpt ot outpatient treatment programs)?: No Have you ever Experienced Blackouts?: No Have you ever Combined Alcohol with other Downers within the last 90 days?: No Have you ever Combined Alcohol with any other Substance of Abuse during the last 90 days?: No Positive Blood Alcohol level on Presentation? [PCS.BAL]: No Evidence of Increased Autonomic Activity (i.e. HR>120, tremor, sweating, agitation, nausea)?: No Result: 0 Time Spent with Patient Time Spent with Patient: 25-34 minutes Time was spent: preparing to see the patient(eg.review tests), counseling the patient and care coordination
--- NOTE | 2024-08-06 13:31 | ANES.PREOP_ITS ---
General Info Date of Service Date Performed: 08/06/24 Height: 5 ft 5 in Weight: 61.5 kg Body Mass Index (BMI): 22.5 Surgical Procedure: Operation Date: 08/06/24 15:05 Proposed Procedure Side Surgeon p Gastroscopy Cricket Umana MD Meds Allergies and Home Medications Allergies Allergy/AdvReac Type Severity Reaction Status Date / Time Sulfa (Sulfonamide Allergy Other (See Verified 08/05/24 19:38 Antibiotics) Comment) Home Medication ?Medication ?Instructions ?Recorded Unknown [No Known Home Meds] 08/05/24 Current Visit Medications: Current Medications Generic Name Dose Route Start Last Admin Trade Name Freq PRN Reason Stop Dose Admin Ringer's Solution 1,000 mls @ 75 mls/hr 08/05/24 20:45 08/06/24 13:22 IV 75 mls/hr INFUSION EULOGIO Administration Pantoprazole Sodium 80 mg/ 100 mls @ 10 mls/hr 08/05/24 21:15 08/06/24 10:04 Sodium Chloride IV Infused INFUSION EULOGIO Infusion IV Miscellaneous Supplies 1 each 08/06/24 07:45 Iv Access IV DIRECTED EULOGIO Ondansetron HCl 4 mg 08/05/24 23:38 08/06/24 05:22 Ondansetron 4 Mg/2 Ml Vial IVP 4 mg Q4H PRN PRN Administration Sodium Chloride 0 ml 08/05/24 19:22 08/06/24 05:22 Normal Saline Flush 10 Ml Syr IVP 20 ml PRN PRN Administration Sodium Chloride 0 ml 08/05/24 20:00 08/06/24 08:40 Normal Saline Flush 10 Ml Syr IVP 20 ml BID EULOGIO Administration Sodium Chloride 0 ml 08/05/24 19:22 Normal Saline 10 Ml Vial IJ DIRECTED PRN Sucralfate 1 gm 08/06/24 00:00 08/06/24 11:27 Sucralfate 1 Gm Tab PO 1 gm Q6H EULOGIO Administration PFSH Active Problems Active Problems: Problem Status Onset Code Adrenal nodule Acute E27.9 Umbilical hernia Acute K42.9 PONV (postoperative nausea and vomiting) Acute R11.2, Z98.890 History of gastric ulcer Acute Z87.11 Anemia due to blood loss, acute Acute D62 Acute GI bleeding Acute K92.2 Surgical History Surgical History (Updated 08/05/24 @ 21:01 by Madelyn Rivas DO) History of parotid gland removal Vital Signs and Lab Results Vital Signs Most Recent Vital Signs in EMR: Most Recent Vital Signs Temp Pulse Resp BP Pulse Ox 36.7 C 84 14 128/69 99 08/06/24 09:00 08/06/24 12:00 08/06/24 12:00 08/06/24 12:00 08/06/24 12:00 Point of Care Results Point of Care Results: Finger Stick Blood Glucose 130 08/05/24 19:21 Lab Results 08/06/24 05:15 08/06/24 05:10 Blood Type / Crossmatch: 2 Antibody Screen POSITIVE 08/05/24 Crossmatch See Detail 08/05/24 Complete Blood Count: 2 White Blood Count 6.50 10^3/uL (4.4-10.8) 08/06/24 05:15 Red Blood Count 3.36 10^6/uL (3.93-5.22) L 08/06/24 05:15 Hemoglobin 10.0 g/dL (11.2-15.7) L 08/06/24 05:15 Hematocrit 29.2 % (36.0-46.0) L 08/06/24 05:15 Platelet Count 176 10^3/uL (130-400) 08/06/24 05:15 Complete Metabolic Panel: 2 Sodium 147 mmol/L (136-145) H 08/06/24 05:10 Potassium 4.3 mmol/L (3.5-5.1) 08/06/24 05:10 Chloride 113 mmol/L (98-107) H 08/06/24 05:10 Carbon Dioxide 23.6 mmol/L (21.0-32.0) 08/06/24 05:10 BUN 44 mg/dL (7-18) H 08/06/24 05:10 Creatinine 0.7 mg/dL (0.55-1.02) 08/06/24 05:10 Est GFR (CKD-EPI 2020) 92.98 (mL/min/1.73m2) 08/06/24 05:10 Magnesium 2.1 mg/dL (1.8-2.4) 08/06/24 05:10 Calcium 8.6 mg/dL (8.5-10.1) 08/06/24 05:10 Albumin 2.7 g/dL (3.4-5.0) L 08/05/24 19:25 Glucose 89 mg/dL (74-106) 08/06/24 05:10 Hemoglobin A1c 5.2 % (<5.7) 08/06/24 05:10 Liver Function Panel: 2 Alanine Aminotransferase (ALT/SGPT) 19 U/L (14-59) 08/05/24 19: 25 Aspartate Amino Transf (AST/SGOT) 17 U/L (15-37) 08/05/24 19:25 Coagulation Panel: 2 INR International Normalized Ratio 1.1 (0.9-1.1) 08/05/24 19:2 5 Prothrombin Time 11.0 sec (9.1-11.1) 08/05/24 19:25 Activated Partial Thromboplast Time 20.0 sec (23.6-32.8) L 08/05/24 19:25 Cardiac Panel: 2 No Data to Display Arterial Blood Gas: 2 No Data to Display Venous Blood Gas: 2 No Data to Display Pancreas Panel: 2 Lipase 29 U/L (16-77) 08/05/24 19:25 Thyroid Panel: 2 No Data to Display Infectious Disease: 2 No Data to Display Blood Cultures: 2 No Data to Display Toxicology Panel: 2 No Data to Display Anesthesia Assessment and Plan Anesthesia History Personal History: No History of Anesthesia Complications Family History: No Family History of Anesthesia Complications Exercise Tolerance Exercise Tolerance: Metabolic Equivalents>4 Pertinent Negatives Pertinent Negatives: No Symptoms of GERD, No Major Cardiovascular Symptoms or Complaints and No Major Pulmonary Symptoms or Complaints Cardiac & Pulmonary Exam Cardiac Exam: Normal S1/S2 Heart Sounds Pulmonary Exam: Clear Bilateral Breath Sounds Implantable Cardiac Device Does patient have a Pacemaker or an ICD?: No Airway Exam Known Difficult Airway: No Mallampati Class: 2 Mouth Opening: Normal (> 3cm) Thyromental Distance: Less than 3 cm Neck Range of Motion: Full ROM Neck Circumference: Normal Teeth Condition: Normal Dentition ASA Classification ASA Score: ASA 2 Emergency Case?: No NPO Status NPO Status: NPO Clears >2 hours, Solids >8 hours Anesthesia Plan Resuscitation Status: Full Code Anesthesia Technique: General Anesthesia Airway Planned: Natural Airway Monitors Used: Standard Monitors
--- NOTE | 2024-08-06 16:30 | STOM_PTH ---
PATIENT: Belle Rayo LOC: ICU U#:[id number] AGE/SX: 69/F ROOM: ICU.219 RE08/05/[address]: Madelyn Rivas : 1955 BED: A DIS: 08/07/2024 SPEC #: [id number] RECD: 08/06/24 17:41 STATUS: [place] REQ #: [id number] ANGEL: 08/06/24 16:[address]: Cricket Umana DEPT: Surgical Specimen RECD BY: Callie Ribeiro ENTERED: 08/11/24 11:59 SP TYPE: STOMACH OTHR DR: No Local Madelyn Rivas Tissues: STOMACH BIOPSY Procedures: GROSS AND MICRO LEVEL 4 IMMUNOPEROXIDASE STAIN Comments: [id number]
--- NOTE | 2024-08-06 16:39 | W.PM.ENDDOP ---
Date of service: 08/06/24 Time of Service: 16:39 Endoscopy Report DATE OF PROCEDURE: 08/06/24 PRE-OP DIAGNOSIS: GI bleed POST-OP DIAGNOSIS: other (Gastric mass) PROCEDURE: EGD with biopsies SURGEON: Cricket Umana ANESTHESIA TYPE: General:No Airway ESTIMATED BLOOD LOSS: 5 PATHOLOGY: other (Cold forceps biopsies of gastric mass) COMPLICATIONS: None DISPOSITION: ICU INDICATIONS: Belle is a 69-year-old woman who presents with hematemesis PROCEDURE START TIME: 16:23 PROCEDURE END TIME: 16:32 FINDINGS: Gastric mass with punctate areas of ulceration PROCEDURE DESCRIPTION: After the initiation of monitored anesthetic care, and with the assistance of a bite block, I advanced a standard gastroscope through the mouth past the hypopharynx and into the esophagus.? Under the direct vision of the scope, I advanced down the esophagus towards the stomach.? The upper, mid, and lower esophagus were all normal-appearing. The Z-line and GE junction were encountered around 37 cm from the incisors. The Z-line was regular. Narrowband imaging was used to assist with the analysis here. There is no evidence of any Cristina's esophagus. Once I entered the stomach, I performed a brief inspection, followed by retroflexion towards the gastric cardia.? This appeared normal.? I did not see any signs of hiatal herniation. I then insufflated the stomach into the rugae were obliterated. Along the anterior wall of the stomach slightly closer to the lesser curvature is a large gastric lesion. I would estimated about 7 or 8 cm across in its largest dimensions. Edges were elevated from the surrounding stomach. There are 2 small areas of punctate ulceration. Neither have any stigmata of recent bleeding. They were irrigated. I did not see any clinical indicators suggestive of increased risk of bleeding. Narrowband imaging was used here as well. There appears to be some increased vascular markings within the lesion. I turned my attention to examination of the rest of the stomach. Posterior wall was all normal, as was the greater curvature. The antrum and pylorus were normal and healthy appearing. I can navigate across the pylorus with ease into the duodenum. There was bile in the duodenum. I was able to advance down to about the second portion of the duodenum. This all looked healthy. I did not see any ulceration or any signs of inflammation within the duodenum. Certainly there was no blood in the duodenum. I then brought the camera back up into the stomach and examined it once again. Based on the clinical features of the lesion, I did think that it was in Belle's best interest to perform some biopsies despite the fact that she presented with hematemesis. Cold forceps were used to biopsy multiple locations of the gastric abnormality. There is minimal amount of bleeding from the biopsy sites. Stomach was then emptied, and the camera was brought back out along the length of the esophagus 1 last time. No other abnormalities were appreciated. Belle was allowed awaken from the anesthetic and transferred back to the intensive care unit.
--- NOTE | 2024-08-06 16:49 | W.ANESPOSTOP ---
Postoperative Evaluation Date, Time and Location Date Performed: 08/06/24 Time Performed: 16:50 Patient Location: Intensive Care Unit Vital Signs Most Recent Imported Vital Signs: Most Recent Vital Signs Temp Pulse Resp BP Pulse Ox 36.7 C 86 23 131/74 99 08/06/24 09:00 08/06/24 14:01 08/06/24 15:44 08/06/24 15:44 08/06/24 15:00 Pain Score Most Recent Pain Score: Most Recent Pain Score Pain Level 0 08/05/24 19:15 Assessment Mental Status: Awake (Alert & Oriented to Patient Baseline) Airway and Respiratory Function: Patent airway with normal (patient baseline) respiratory exam Cardiovascular Function: Hemodynamically Stable Hydration Status: Adequately Hydrated Nausea & Vomiting: No Nausea or Vomiting Pain: Pt. Denies Any Pain Peripheral Nerve Block: Patient did not receive a nerve block Postoperative Comments:: see EMR for VS
--- NOTE | 2024-08-06 17:01 | CHAPLAIN ---
Belle and her , Carmelo, are visiting from [place] and have been hiking in the area on vacation when Belle and an episode yesterday of throwing up blood at the hotel room. EMS was called. Today she is feeling better and waiting for another test. They hope to continue on to [place] for a few days if Belle is feeling well enough and then return to [place] and fly home. They are really enjoying the foliage in [place], Belle said.
[2024-08-06] MEDS: Pantoprazole 40 MG TABCR PO (19:42)
[2024-08-07] VITALS (31 sets, daily range): BP systolic 140–164; BP diastolic 76–93; PULSE 77–113; RESP 12–25; TEMP 37–37.7; O2SAT 92–99
[2024-08-07] MEDS: Sucralfate 1 GM TAB PO ×3 (00:11→11:54)
[2024-08-07] MEDS: Pantoprazole 40 MG TABCR PO (07:38)
[2024-08-07] MEDS: Normal Saline Flush 10 ML SYR IVP (07:39)
--- NOTE | 2024-08-07 10:00 | PGE_ITS ---
Date of Service Date of service: 08/07/24 Time of Service: 10:00 Assessment and Plan Assessment and plan (1) Acute GI bleeding: Status: Acute Assessment and plan: Her hemoglobin is down a gram today, and her heart rate has increased a little bit although it is difficult to decipher since she is certainly more active this morning compared to yesterday. I think it is fine to advance her diet at this point to ensure that she will be able to meet nutritional goals once discharged. I will repeat her hemoglobin later this morning. We do have 2 units of blood available if she needs them for symptomatic anemia Subjective Subjective Interval history since last seen: Belle says she feels well today. She has been up and moving around a little bit. She been tolerating liquid diet without any issues. She is asymptomatic in that regards. She did have a soft bowel movement a little bit dark. Exam GI Other: Abdomen soft and nondistended. She is not tender. Objective Last Vital Signs Temp 99.0 F 08/07/24 07:30 Pulse 104 H 08/07/24 07:23 Resp 18 08/07/24 07:23 BP 154/92 H 08/07/24 07:23 Pulse Ox 100 08/06/24 19:30 Laboratory Results - last 24 hr 08/05/24 08/05/24 08/07/24 19:25 20:08 05:43 Hgb 9.0 L ABO/Rh O Positive Antibody Screen POSITIVE Antibody Identification See Comments Antibody ID Referred See Comment Crossmatch See Detail PAWSS Have you Been Recently Intoxicated or Drunk Within the Last 30 days?: No Have you Ever Experienced Previous Episodes of Alcohol Withdrawal?: No Have you ever Experienced Withdrawal Seizures?: No Have you ever Experienced Delirium Tremens(DT)s?: No Have you ever undergone Alcohol Rehabilitation Treatment (i.e, inpt ot outpatient treatment programs)?: No Have you ever Experienced Blackouts?: No Have you ever Combined Alcohol with other Downers within the last 90 days?: No Have you ever Combined Alcohol with any other Substance of Abuse during the last 90 days?: No Positive Blood Alcohol level on Presentation? [PCS.BAL]: No Evidence of Increased Autonomic Activity (i.e. HR>120, tremor, sweating, agitation, nausea)?: No Result: 0 Time Spent with Patient Time Spent with Patient: 25-34 minutes Time was spent: preparing to see the patient(eg.review tests), ordering medicati ons,tests, procedures, counseling the patient and care coordination
--- NOTE | 2024-08-07 10:06 | DSE_ITS ---
Date of service: 08/07/24 Time of Service: 13:00 DS: Diagnosis Discharge Diagnosis (1) Acute GI bleeding: Status: Acute Asessment and Plan: Continue outpatient proton pump inhibitor therapy as well as sucralfate. Follow-up on biopsy results Discharge Plan Disposition Patient Disposition: Home Condition: Improving Discharge Details Reason For Visit: acute upper GI bleed/acute blood loss anemia Admit Date/Time: 08/05/24 20:45 Admit Provider: Madelyn Rivas Attending Provider: Madelyn Rivas Primary Care Provider: Erika,[facility] Course Hospital Course: Belle is 69 years old. She comes to the hospital after an episode of hematemesis with syncope. Hemoglobin was about 9. She reported history of peptic ulcer disease. She underwent a CT scan that did not show any evidence of active extravasation. She was transfused packed red blood cells and admitted to the intensive care unit. Proton pump inhibitor therapy was initiated. She underwent EGD the next day the demonstrated a gastric mass, and some punctate areas of ulceration without obvious stigmata of recent bleeding. Biopsies of the mass were performed. Hemoglobin did trend downward the following day. but remained stable thereafter. In light of her antibodies and tachycardia, and since blood was available, she was transfused a unit prior to discharge. Home Meds and New Rx's Prescriptions: New pantoprazole [Protonix] 40 mg tablet,delayed release (DR/EC) 40 mg PO BID Qty: 60 0RF Rx Instructions: Take 1 tablet by mouth in the morning, 1 tablet by mouth in the evening sucralfate [Carafate] 1 gram tablet 1 g PO QACHS Qty: 120 0RF Discharge Instructions Instructions: Peptic ulcers, [place] Diet Additional Instructions: Belle, I enjoyed meeting you and your . I am so sorry that you found yourself here in the hospital during your vacation, and I hope we made as comfortable and experience as could be expected. As a brief summary of your stay, you came to the hospital with concerns for a bleeding stomach ulcer. Blood test supported the diagnosis of recent bleeding. You were transfused a unit of packed red blood cells, started on a medication called Protonix (this is a strong antacid medication known as a proton pump inhibitor) as well as sucral fate (this helps neutralize some stomach secretions, and perhaps coats ulcers to promote healing). You seemed to respond very favorably to that. You underwent an EGD that showed an abnormality in your stomach. There were some signs that this is the source of your bleeding. Biopsies were performed of this, and those biopsies will take several days before we get the results. By the time you are ready for discharge, your bleeding test were reassuring that there was no longer any active bleeding. You will be discharged on Protonix and sucralfate to use as an outpatient. The Protonix is taken once in the morning and once in the evening. The sucralfate is taken with each meal, and before bedtime. I sent these prescriptions to the [facility] which is right here in [facility]. It is right at the bottom of the [place] as you exit the hospital campus. It is important that you continue these medications as an outpatient to help reduce the likelihood of future bleeding. I understand this has significantly changed her travel plans. I hope that your travel insurance is able to accommodate your medical needs after this. I do think that it is important for you to travel home in a timely fashion, and I hope the [employer] send insurance company are able to help you with those needs. Again, to put this in perspective, you required an unanticipated admission to the intensive care unit with significant bleeding requiring an invasive procedure, and outpatient treatment. I would consider this a major healthcare burden, and it seems very much aligned with a traditional goals of travel insurance. If there is any documentation that you need to help your application, please do not hesitate to let us know. You will certainly need follow-up for this condition once you get home, although the majority of the follow-up care will be dependent upon the tissue diagnosis from the biopsies. At the very least, I would encourage you to schedule a follow-up appointment with your primary care physician as soon as possible in order to help facilitate referrals to specialists if needed. I will be in touch as soon as I have the results of any outstanding testing, and we will certainly go out of our way to share what ever documents are needed once that information is available. If you need anything at all, please do not hesitate to call my office directly at [phone] during regular business hours. If you need something after hours, just call the main number to [facility] and ask the rubber moulding machine operator to page the surgeon on-call. Activity:: Activity as Tolerated Equipment/Supplies:: No Equipment Needed Diet:: [place] diet Discharge Orders Discharge Orders: Discharge Order (Routine); Ordered 08/07/24 Ordered By: Cricket Umana DS: Summary Time Spent with Patient providing and/or coordinating discharge services: Greater than 30 minutes Status at Discharge Functional status at discharge: independent ambulation Overall status at discharge: patient is back to baseline Mental Status: mental status grossly normal Speech and Movement: speech and movement normal Mood: congruent mood Affect: normal affect Quality:SDOH Health Related Social Needs: No Data to Display Exam GI Other: Abdomen soft and nontender Psych Mental Status: mental status grossly normal Speech and Movement: speech and movement normal Mood: congruent mood Affect: normal affect DS: Data Vitals/I&O Vitals and I&O: Vital Signs Temperature 99.0 F 08/07/24 07:30 Temperature Source Temporal Artery Scan 08/07/24 07:30 Pulse 104 H 08/07/24 07:23 Pulse 103 H 08/07/24 07:23 Respiratory Rate 18 08/07/24 07:23 Respiratory Effort Normal, Non-Labored 08/05/24 23:54 Respiratory Depth Normal 08/05/24 19:27 Respiratory Pattern Normal 08/05/24 23:54 Blood Pressure 154/92 H 08/07/24 07:23 Blood Pressure Mean 110 08/07/24 07:23 Pulse Oximetry 100 08/06/24 19:30 Oxygen Delivery Method Room Air 08/05/24 23:54 Oxygen Flow Rate 0 08/05/24 23:54 Pain Level 0 08/05/24 19:15 Comment on bedside commode 08/06/24 06:00 Intake & Output 08/06/24 08/06/24 08/07/24 11:59 23:59 11:59 Intake Total 214.875 / 3795.206 8195.75 / 7143.767 9446 / 1205 Output Total 900 / 1600 700 / 1600 1300 / 1300 Balance -685.125 / -156.375 528.75 / -156.375 -95 / -95 Weight 135 lb 9.349 oz 135 lb 9.349 oz 132 lb 11.492 oz Intake: IV 214.875 / 4875.278 8182.75 / 1443.625 585 / 585 Oral 620 / 620 Output: Urine 900 / 1600 700 / 1600 1300 / 1300 Other: Urine Color Brown Yellow Yellow Straw Urine Appearance Clear Clear Urine Odor Normal Normal Comment unknown amount do to stool mixed Stool Size Large Small Stool Characteristics Soft Soft Formed Brown Brown Black Voiding Methods Bedside Commode Bedside Commode Bedside Commode Data Completed and Pending Pending studies at discharge: Gastric mass biopsies Labs on day of discharge: Labs from last 24 hours 08/07/24 08/07/24 08/06/24 12:01 05:43 09:45 Hgb Pending 9.0 L Carcinoembryonic Ag Pending CA 19-9 Antigen Pending ABO/Rh Antibody Screen Antibody Identification Antibody ID Referred Crossmatch 08/05/24 08/05/24 20:08 19:25 Hgb Carcinoembryonic Ag CA 19-9 Antigen ABO/Rh O Positive Antibody Screen POSITIVE Antibody Identification See Comments Antibody ID Referred See Comment Crossmatch See Detail Additional Comments Additional comments: Please print out a copy of Belle's history and physical, EGD report, and discharge summary and provide those at the time of discharge PFSH All Active Problems (Updated 08/05/24 @ 23:34 by Madelyn Rivas DO) Adrenal nodule (Acute) Umbilical hernia (Acute) PONV (postoperative nausea and vomiting) (Acute) History of gastric ulcer (Acute) Anemia due to blood loss, acute (Acute) Acute GI bleeding (Acute) Surgical History (Updated 08/05/24 @ 21:01 by Madelyn Rivas DO) History of parotid gland removal Social History Smoking risk assessment performed?: No Housing: house Time Spent with Patient Time Spent with Patient: 45-69 minutes Time was spent: preparing to see the patient(eg.review tests), referring, communicating with other health customer care coordinator, indepentently interpreting results, counseling the patient and care coordination
--- NOTE | 2024-08-07 14:56 | CMDISCH_ITS ---
Date of service: 08/07/24 Time of Service: 14:56 LACE Index Scoring Tool Questions: Length of Stay (in days): 2 Was the patient admitted via the E.D.?: Yes E.D. Visits: 1 Answers: Total Score: 6 Risk of Readmission: Low Risk Care Management Discharge Plan Reason for Hospitalization: UGI bleed Discharge Plan: Belle will be discharged with no new services. When she is able to travel back home to [place] she will follow up with her PCP and plan of ca re. Patient/Family Education Needs: Review of discharge instructions, activity, follow up plan, limitations, discuss Ask Me Three [facility] Health Related Social Needs: No Data to Display
[2024-08-09 12:35] LABS: CA 19-9 4 U/mL (<35)
[2024-08-09 12:39] LABS: CEA 1.6 ng/mL (See Note)
== END 2024-08-07 16:20 | disposition home or self-care (01) | DRG 840 ==
LOC: ER 20:38 → ICU 23:13
PROVIDERS: Surgery; Admitting Provider Surgery; Emergency Provider Emergency Medicine; Visit Provider Surgery
PROC: 0DJ68ZZ Inspection of Stomach, Via Natural or Artificial Opening Endoscopic (ICD-10-PCS; CPT 43235; principal; 2024-08-06 15:00)
DX: K25.4 Chronic or unspecified gastric ulcer with hemorrhage (principal); D62 Acute posthemorrhagic anemia; K92.0 Hematemesis; K31.89 Other diseases of stomach and duodenum; Z87.11 Personal history of peptic ulcer disease; K42.9 Umbilical hernia without obstruction or gangrene; E27.8 Other specified disorders of adrenal gland; C88.40 Extranodal marginal zone B-cell lymphoma of mucosa-associated lymphoid tissue [MALT-lymphoma] not having achieved remission
CPT/HCPCS: 43239; 36415; 36416; 36430; 80048; 80053; 82962; 83690; 85027; 86850; 86900; 86901; 86920; 88305; 96374; 96375; 99223; 99232; 99239; 99291; 74174; 82378; 82607; 82728; 82746; 83036; 83735; 85018; 85025; 85610; 85730; 86301; 86860; 86870; 86880; 86885; 86906; 88361; J2405; J2470; J2704; P9016